=== PATIENT | female | born 1985 | race Caucasian/White ===

== ENCOUNTER 2022-03-22 16:36 | Emergency (ER) | payer OTHER, SELFPAY ==
[2022-03-22 16:37] VITALS: BP 160/88; PULSE 82; RESP 16; TEMP 36; O2SAT 100; BMI 33.2
--- NOTE | 2022-03-22 17:05 | EDS_ITS ---
HPI History of Present Illness Chief Complaint: Chest Pain Informant: patient Onset/Context/Timing Onset: Days Activity at onset: gradual Timing: Intermittent Quality: Positive for Heaviness and Pressure Location: Substernal and - (Radiates toward left shoulder.) Current Severity: Mild Maximum Severity: Mild Narrative Narrative: Patient present secondary to chest pressure. She states on Friday and Friday of this week she had a heavy sensation in her mid chest that would somewhat radiate toward her left shoulder. She seem to notice it after having some stressful meetings and thought it was stress-induced. Next couple days her chest pressure was improved but she felt like she had a brain fog. She is afraid maybe she was having trouble with her blood sugar so she made sure she ate breakfast this morning. She had a snack followed by lunch. She states she felt the most normal today, however did note that her chest pain recurred this afternoon. She called her PCPs office who referred her to the emergency room. She denies any personal or family history of cardiac disease. [facility] Medical History no medical history no medical history Home Medications Formula Tablet 1 tab PO DAILY 04/28/17 [History Last Taken 04/27/17 1] ibuprofen 800 mg tablet 800 mg PO TID PRN PRN Pain #60 tabs 04/29/17 [Rx Last Taken Unknown] Allergy/AdvReac Type Severity Reaction Status Date / Time No Known Allergies Allergy Verified 03/22/22 16:36 Social History Smoking Status: Never smoker ROS ROS ED Constitutional Constitutional ED: Denies chills or fever(s) Eyes Eyes: Denies change in vision or discharge from eye(s) ENT ENT ED: Denies discharge from eye(s), rhinorrhea or sore throat Cardiovascular Cardiovascular: Reports chest pain; Denies palpitations Respiratory/Chest Respiratory/Chest: Denies cough or dyspnea Gastrointestinal Gastrointestinal: Denies abdominal pain, nausea or vomiting Genitourinary Genitourinary ED: Denies dysuria Musculoskeletal Musculoskeletal: Denies back pain or extremity pain Integumentary Denies Abrasions or rash Neurologic Neurologic: Reports other Details: Brain fog ; Denies headache(s) or weakness Psychiatric Psychiatric: Denies anxiety or depression Allergic/Immunologic Allergic/Immunologic ED: Denies lip swelling or urticaria EXAM Physical Exam Const Vital Signs: 03/22/22 16:37 03/22/22 16:46 03/22/22 17:48 Temperature 96.8 F L Temperature Source Temporal Pulse Rate 82 Respiratory Rate 16 Respiratory Effort Normal Blood Pressure 160/88 H Blood Pressure Mean 112 Pulse Ox 100 Oxygen Delivery Method Room Air Room Air 03/22/22 17:49 Temperature Temperature Source Pulse Rate 77 Respiratory Rate 18 Respiratory Effort Blood Pressure 139/92 H Blood Pressure Mean 107 Pulse Ox 95 Oxygen Delivery Method Room Air Positive well nourished and well developed General Appearance ED: well developed HEENT Reports normocephalic and head/scalp atraumatic Eyes PERRL and EOMs intact bilaterally Neck supple Chest Wall inspection of chest normal and palpation of chest normal Resp normal respiratory effort and clear to auscultation bilaterally Cardio regular rate and regular rhythm GI normal to inspection, nondistended, normoactive bowel sounds Palpation: soft Extremity normal to inspection Neuro oriented x3 and no sensory deficits noted Sensorium / Orientation: alert Motor Exam: strength 5/5 throughout Psych mental status grossly normal Skin no rashes or lesions noted Heart Score History: Slightly/Non-Suspicious ECG: Normal Age: </= 45 years Risk Factors: No Risk Factors Troponin: </= Normal Limit Score: 0 MDM MDM MDM Narrative Medical decision making narrative: Patient placed on extension associate. EKG, chest x-ray, lab work obtained. Lab Data Labs: Laboratory Results - last 24 hr 03/22/22 03/22/22 17:40 17:40 WBC 5.5 RBC 4.57 Hgb 13.7 Hct 41.7 MCV 91.2 MCH 30.0 MCHC 32.9 RDW Std Deviation 41.0 RDW Coeff of Wilbert 12.4 Plt Count 292 MPV 9.7 Immature Gran % (Auto) 0.400 Neut % (Auto) 53.6 Lymph % (Auto) 33.8 Wilkinson % (Auto) 9.1 Eos % (Auto) 2.4 Baso % (Auto) 0.7 Absolute Neuts (auto) 2.9 Absolute Lymphs (auto) 1.85 Nucleated RBC % 0 Sodium 139 Potassium 3.7 Chloride 108 H Carbon Dioxide 27.0 Anion Gap 4 L BUN 12 Creatinine 0.96 Estim Creat Clear Calc 83.04 Est GFR (MDRD) Af Amer 84 Est GFR (MDRD) Non-Af 69 BUN/Creatinine Ratio 12.6 Glucose 105 Calcium 9.2 Troponin I High Sens 5 Radiography Chest X-Ray - ED: 1 View, Read by ED Physician, Normal, Heart, Lungs and Mediastinum Diagnostic Testing: Clinical Impression(s) from Imaging Studies Chest X-Ray 03/22/22 17:35 IMPRESSION: No acute abnormal cardiopulmonary finding. Electronically Signed: Tarik Greenfield MD at 17:50 EST , EKG Initial EKG: Attestation: I personally reviewed and interpreted this EKG as follows: Interpretation: Sinus Rhythm (Sinus at 78 with no acute ischemia. Artifact noted in lead V3.) Treatment and Re-Evaluation Narrative: On repeat evaluation patient resting comfortably. Blood pressure improved from 160 systolic down to 139. Test results discussed with patient and mother at bedside. CBC and chemistry studies unremarkable. Troponin is normal at 5. Chest x-ray per my interpretation reveals no acute findings. Radiology interpretation is reviewed and agrees. EKG reveals no ischemia. We did discuss possible reflux as source of her pain. I recommended trying Prilosec for the next couple weeks to see if that helps. Return instructions were given for any concerning symptoms. Discharge Plan Triage Chief Complaint: Chest Pain ED Provider: Cely Womack Dx/Rx/DC Orders Clinical Impression: Chest pain Instructions: ED Chest Pain, Uncertain Cause Prescriptions: No Action Formula Tablet 1 tab PO DAILY ibuprofen 800 MG tablet 800 mg PO TID PRN PRN (Reason: Pain) Qty: 60 1RF Primary Care Provider: Juan Carlos Harper Referrals: Juan Carlos Harper MD [Primary Care Provider] - 1 Week if not improving Disposition Disposition: Home, Self Care
--- NOTE | 2022-03-22 17:15 | EKG12_ITS ---
Test Reason : Blood Pressure : / mmHG Vent. Rate : 078 BPM Atrial Rate : 078 BPM P-R Int : 138 ms QRS Dur : 074 ms QT Int : 370 ms P-R-T Axes : 043 041 050 degrees QTc Int : 421 ms Normal sinus rhythm with sinus arrhythmia Nonspecific ST and T wave abnormality Abnormal ECG Confirmed by NAZANIN RIVERA, GUZMAN ([id number]), technical writer and editor ISAIAH FERNANDEZ ([id number]) on 03/26/2022 11:10:01 AM Referred By: CHARIS Confirmed By:JAK BACK MD
--- NOTE | 2022-03-22 17:35 | RAD_ITS ---
STUDY: X-RAY CHEST REASON FOR EXAM: Female, 36 years old. Chest pain TECHNIQUE: Portable, upright, AP chest x-ray COMPARISON: None. FINDINGS: The lungs are clear and expanded. There is no demonstrated pleural abnormality. Normal size heart. Normal mediastinum and leonor. Normal visualized pulmonary arteries. Normal visualized aortic arch and descending thoracic aorta. There is no demonstrated abnormality of the visualized soft tissue structures of the upper abdomen. RAD/Chest 1 View (Portable) IMPRESSION: No acute abnormal cardiopulmonary finding. Electronically Signed: Tarik Greenfield MD at 17:50 EST ,
[2022-03-22 17:49] VITALS: BP 139/92; PULSE 77; RESP 18; O2SAT 95
[2022-03-22 17:51] LABS: Absolute Lymphocyte Count 1.85 X10^3/uL (0.83-4.51); Absolute Neutrophil Count 2.9 X10^3/uL (2.0-7.7); Basophil# 0.04 X10^3/uL; Basophil% 0.7 % (0-1); Eosinophil# 0.13 X10^3/uL; Eosinophils% 2.4 % (0-5); Hematocrit 41.7 % (37-47); Hemoglobin 13.7 g/dL (12.0-15.0); Lymphocyte # 1.85 X10^3/ul (0.83-4.51); Lymphocyte % 33.8 % (19-41); Mean Corp Hgb Conc 32.9 g/dL (32-36); Mean Corpuscular Volume 91.2 fL (81-99); Mean Platelet Vol. 9.7 fl (6.2-12.0); Monocyte% 9.1 % (0-10); NRBC Flagged by Analyzer 0 % (0-5); Neutrophil # 2.94 X10^3/uL (2.7-7.7); Neutrophil % 53.6 % (47-70); Platelet Count 292 K/mm3 (150-450); RBC Distribution Width CV 12.4 % (11.6-14.6); Red Blood Count 4.57 M/mm3 (4.2-5.4); White Blood Count 5.5 K/mm3 (4.4-11.0)
[2022-03-22 18:19] LABS: Anion Gap 4 (5-15); BUN 12 mg/dL (7-18); BUN/Creat Ratio 12.6 RATIO (10-20); Calcium,Total 9.2 mg/dL (8.5-10.1); Chloride 108 mmol/L (98-107); Creatinine, Serum 0.96 mg/dL (0.55-1.02); EST Glomerular Filtration Rate 69 mL/min (>60); Est Glom Filt Rate - Afr Amer 84 mL/min (>60); Estimated Creatinine Clearance 83.04 ml/min; Glucose 105 mg/dL (74-106); Potassium 3.7 mmol/L (3.5-5.1); Sodium Level 139 mmol/L (136-145); Troponin-I HS 5 pg/mL (3.0-54.0)
[2022-03-22 18:47] VITALS: BP 139/97; PULSE 75; RESP 23; O2SAT 95
== END 2022-03-22 18:52 | disposition home or self-care (01) ==
PROVIDERS: Emergency Provider Emergency Medicine; PCP Family Medicine; Visit Provider Emergency Medicine
DX: R07.9 Chest pain, unspecified (principal)
CPT/HCPCS: 71045; 80048; 84484; 85025; 93005; 99284; A4216

== ENCOUNTER → 2022-08-27 | Outpatient (CLI) | payer OTHER, SELFPAY | END | disposition home or self-care (01) | LOC: LABSPEC 16:14 | PROVIDERS: PCP Family Medicine; Referring Provider Otolaryngology; Visit Provider Otolaryngology | DX: J02.9 Acute pharyngitis, unspecified (principal) | CPT/HCPCS: 87070 ==

== ENCOUNTER 2024-02-20 15:54 | Emergency (ER) | payer OTHER, SELFPAY ==
[2024-02-20 15:54] VITALS: BP 147/96; PULSE 103; RESP 16; TEMP 36.6; O2SAT 100; BMI 30.2
[2024-02-20] MEDS: oxyCODONE 5 MG Tablet PO (16:26)
[2024-02-20] MEDS: Bupivacaine 0.5% PF 10 ML VIAL 5 ML IJ (17:16)
[2024-02-20 17:54] VITALS: PULSE 70; RESP 16
[2024-02-20 17:58] VITALS: BP 147/96; PULSE 70; RESP 16; TEMP 36.6; O2SAT 100
== END 2024-02-20 17:59 | disposition home or self-care (01) ==
PROVIDERS: Emergency Provider Emergency Medicine; PCP Family Medicine; Visit Provider Emergency Medicine
DX: M06.9 Rheumatoid arthritis, unspecified (principal); M25.461 Effusion, right knee; M79.641 Pain in right hand
CPT/HCPCS: 20610; 73564; 99282